=== PATIENT | male | born 2000 | race Caucasian/White ===

== ENCOUNTER 2023-08-08 00:13 | Emergency (ER) | payer SELFPAY ==
[~2023-08-08] VITALS: Ht 188 cm; Wt 99.5 kg
[2023-08-08] MEDS ORDERED: BACTRIM DS TAB1 EACH PO (03:33)
[2023-08-08] MEDS ORDERED: CEPHALEXIN500 M1 PO (03:33)
[2023-08-08 04:00] VITALS: BP 142/82
== END 2023-08-08 04:00 | disposition home or self-care (01) ==
LOC: ED 00:13
DX: S61.402A Unspecified open wound of left hand, initial encounter (principal); L08.9 Local infection of the skin and subcutaneous tissue, unspecified; Z23 Encounter for immunization; W19.XXXA Unspecified fall, initial encounter
CPT/HCPCS: 90471; 90715; 99283-25; A9270